=== PATIENT | male | born 1945 | race Caucasian/White ===

== ENCOUNTER → 2021-04-08 | Outpatient (CLI) | payer MEDICARE, OTHER ==
[~2021-04-08] MED LIST: AMLODIPINE BESY10 MG PO; ATORVASTATIN CA20 MG PO; CLOPIDOGREL75 MG PO; ECOTRIN81 MG; FISH OIL 1,0001 EAC2; LISINOPRIL10 MG PO; MAGNESIUM400 MG; METOPROLOL SUCC50 MG PO; MULTI-VITAMIN1 EACH; PANTOPRAZOLE SO40 MG PO
== END ==
LOC: MRI 10:37
PROVIDERS: ATTEND Family Medicine
DX: M51.36 Other intervertebral disc degeneration, lumbar region (principal); Z98.890 Other specified postprocedural states
CPT/HCPCS: 72148